=== PATIENT | male | born 1990 | race Asian ===

== ENCOUNTER 2022-10-25 11:54 | Outpatient (CLI) | payer OTHER ==
[2022-10-25 18:12] LABS: BASOPHILS # (AUTO) 0.1 10^3/uL (0.0-0.1); EOSINOPHILS # (AUTO) 0.5 10^3/uL (0.0-0.7); EOSINOPHILS % (AUTO) 4.5 %; HCT - HEMATOCRIT 54.9 % (42.0-52.0); HGB - HEMOGLOBIN 18.1 g/dL (14.0-18.0); LYMPHOCYTES # (AUTO) 3.4 10^3/uL (1.5-3.5); MEAN CORPUSCULAR HEMOGLOBIN 31.2 pg (27.0-31.0); MEAN CORPUSCULAR VOLUME 94.5 fL (80.0-94.0); MEAN PLATELET VOLUME 10.2 fL (7.4-11.4); MONOCYTES # (AUTO) 0.8 10^3/uL (0.0-1.0); MONOCYTES % (AUTO) 7.5 %; NEUTROPHILS # (AUTO) 5.7 10^3/uL (1.5-6.6); NEUTROPHILS % (AUTO) 54.6 %; PLT - PLATELET COUNT 357 10^3/uL (130-450); RED BLOOD COUNT 5.81 10^6/uL (4.70-6.10); RED CELL DISTRIBUTION WIDTH 12.3 % (12.0-15.0); WHITE BLOOD COUNT 10.5 x10^3/uL (4.8-10.8)
[2022-10-25 18:28] LABS: ALBUMIN 4.3 g/dL (3.2-5.5); ALKALINE PHOSPHATASE 53 IU/L (42-121); ALT ALANINE AMINOTRANSFERASE 129 IU/L (10-60); AST ASPARTATE AMINOTRANSFERASE 59 IU/L (10-42); BILIRUBIN,TOTAL 0.8 mg/dL (0.2-1.0); BUN - BLOOD UREA NITROGEN 12 mg/dL (6-20); CALCIUM 9.7 mg/dL (8.5-10.3); CARBON DIOXIDE - CO2 27 mmol/L (21-32); CHLORIDE 103 mmol/L (101-111); CHOL/HDL RATIO 4.7 (<5.0); CHOLESTEROL 253 mg/dL; CREATININE 0.8 mg/dL (0.6-1.2); GFR - MDRD 113 (>89); GLUCOSE 96 mg/dL (70-100); HDL CHOLESTEROL 54 mg/dL; LDL CHOLESTEROL,CALCULATED 168 mg/dL; LDL/HDL RATIO 3.1 (<3.6); POTASSIUM 3.9 mmol/L (3.5-5.0); SODIUM 137 mmol/L (135-145); TOTAL PROTEIN 8.5 g/dL (6.7-8.2); TRIGLYCERIDES 154 mg/dL; URIC ACID 9.2 mg/dL (2.6-7.2); VLDL CHOLESTEROL 31 mg/dL
[2022-10-25 18:33] LABS: THYROID STIMULATING HORMONE 1.51 uIU/mL (0.34-5.60)
== END 2022-10-25 11:55 | disposition home or self-care (01) ==
LOC: LAB.N 11:54
PROVIDERS: ATTEND Physician Assistant
DX: Z13.9 Encounter for screening, unspecified (principal)
CPT/HCPCS: 36415; 80053; 80061; 83721; 84443; 84550; 85025

== ENCOUNTER 2022-11-13 11:44 | Outpatient (CLI) | payer OTHER ==
--- NOTE | 2022-11-13 17:53 | Ultrasound Report ---
PROCEDURE: Abdomen Limited INDICATIONS: ABN LFTS TECHNIQUE: Real-time focused scanning was performed of the abdomen, with image documentation. COMPARISONS: None. FINDINGS: Liver: Liver is normal in size. Diffusely increased liver parenchymal echotexture is seen.. Gallbladder: 5 mm polyp is noted in dependent portion of gallbladder wall. No gallbladder wall thicke marcia or pericholecystic fluid. No sonographic Johnson's sign. Biliary ducts: Intrahepatic bile ducts are non-dilated. Extrahepatic bile duct caliber measures 3.2 mm. Normal is 6-7 mm or less in diameter, or 10 mm or less post-cholecystectomy. Pancreas: Visualized portions of the pancreas are sonographically normal. Right kidney: Normal in size and echotexture. Right kidney measures 10.9 cm long. No hydronephrosis or nephrolithiasis. No solid masses. No complex renal cystic lesions which require follow-up. Aorta: Visualized aorta is normal in caliber at less than 3 cm. IVC: Intrahepatic inferior vena cava is patent. Miscellaneous: No free abdominal fluid. IMPRESSION: 1. Hepatic steatosis, no discrete hepatic lesion. 2. 5 mm polyp in gallbladder. No evidence of cholelithiasis or acute cholecystitis. No biliary ductal dilatation. 3. Rest of the exam is unremarkable. Reviewed by: Ted Crawford MD on 11/13/2022 5:51 PM PDT Approved by: Ted Crawford MD on 11/13/2022 5:51 PM PDT Station ID: [id number]
== END 2022-11-13 11:45 | disposition home or self-care (01) ==
LOC: DI 11:44
PROVIDERS: ATTEND Physician Assistant
DX: K76.0 Fatty (change of) liver, not elsewhere classified (principal); K82.4 Cholesterolosis of gallbladder

== ENCOUNTER 2022-12-18 13:25 | Outpatient (CLI) | payer OTHER ==
--- NOTE | 2022-12-18 14:04 | Sleep Patient Instructions ---
Sleep Center Visit Summary - Patient Visit Information Reason for Visit: Initial consult for evaluation of sleep disordered breathing and other sleep issues. - Patient Instructions Instructions Attached: Sleep Study, Sleep Clinic Visit, Sleep Study Home Monitor Additional Instructions: You will be completing a sleep study, either an in-lab polysomnography (PSG) or home sleep study (HST). You will follow-up in the sleep care office after the sleep study is completed to hear the results and talk about therapy, if needed. You will be called by our office staff to schedule this appointment, but you may contact us with any questions. - Clinic Information Contact: [facility] [address] [place] [address] [email or web address] T: [phone]
--- NOTE | 2022-12-18 14:10 | SLEEP CARE CONSULTATION ---
Information from patient questionnaire entered by Sary Riley. I have reviewed and concur with the information entered by Sary Riley. This document represents the service I personally performed and the decisions made by me, Alyson Wu ARNP. History of Present Illness Service Date and Time: 12/18/2022 1325 Reason for Visit: New patient Chief Complaint: reports: Snoring, Observed pauses in breathing Date of Onset: YRS Usual bedtime: 11PM Time it takes to fall asleep: 15-20MIN Snores at night: Yes Observed to quit breathing while asleep: Yes Sleeps alone due to snoring: No Number of times waking at night: 1-2 Reasons for waking at night: reports: Bathroom. denies: Choking, Snoring, Gasping for air Toss, Turn, or Twitch while sleeping: Yes Recalls having dreams: No (not normally) Usually gets out of bed at: 630AM Feels refreshed in the morning: Yes Morning headache: No Sleepy or fatigued during the day: Yes Ever fallen asleep while driving: No Takes day naps: Yes (usually only 1-2 hours on days off) Dreams during day naps: No Prior sleep studies: No Additional HPI information: I had the pleasure of seeing NINA QIU today regarding the possibility of him having a sleep disorder. His current complaints are snoring and observed pauses in breathing. He states he knows that he snores. His mother and brother have told him that he stops breathing when sleeping. He denies ever waking up from snoring, gasping for air or feeling like he is choking. He states more recently he has been getting tired during his work day and sometimes almost falling asleep when he is standing up. He is concerned about his health and why he could be so tired during the day. He has had times that he wakes up sitting up without any recollection of why he is sitting up. He thinks he fell asleep laying down but then wakes up already sitting up. He states he normally wakes up feeling refreshed. He denies morning headaches. He states his father had sleep apnea. 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 Patient is Single and lives in . Have you smoked in the past 12 months: No Alcohol use: Yes Alcohol amount and frequency: LESS THAN ONE SOCIALLY Caffeine use: Yes Caffeine amount and frequency: 1-2 DAILY Family History Family history of sleep disordered breathing: Yes Family Hx Sleep Apnea: Mother: Snoring, Father: Snoring, Sleep apnea - Treated, Sibling: Snoring Allergies and Home Medications Known drug allergies: No Drug allergies reviewed: Yes Home medication list reviewed: Yes (Ibuprofen, as needed) Review of Systems Weight gain over past 5 years: 10- Cardiovascular: denies: high blood pressure Respiratory: denies: shortness of breath Gastrointestinal: denies: heartburn Neurological: denies: headaches, head trauma Psychiatric: denies: anxiety, depression Ear/Nose/Throat: denies: injury to nose, tonsillectomy Endocrine: denies: thyroid disease Immunologic: reports: allergies to food or environment (may have some environmental allergies, not sure) Physical Exam Vital signs obtained and entered by: SARY Steele MA Blood Pressure: 134/86 (LEFT ARM) Cuff size: regular Heart Rate: 125 O2 Saturation: 95 Height: 5 ft 5 in Weight: 279 lb 9.6 oz Body Mass Index: 46.5 BMI Classification: Morbidly Obese Neck circumference: 21 Mouth and throat: narrow oropharynx Soft palate: long Hard palate: normal Uvula: normal Uvula visualization: 25% Mallampati Class III Tongue: enlarged in size with teeth wilson on lateral edges Tonsils: 2+ Neck: normal w/o lymphadenopathy or thyromegaly Heart: regular rate and rhythm Lungs: clear bilaterally Impression and Plan 1. Suspected Obstructive Sleep Apnea-Hypopnea Syndrome, as suggested by a history of loud and irregular snoring, observed cessation of breath while asleep, and excessive daytime sleepiness. Narrow oropharynx and obesity are common predisposing factors for obstructive sleep apnea-hypopnea syndrome. I recommend proceeding to polysomnography to confirm the diagnosis and to assess severity. If the patient has significant sleep disordered breathing, a manual CPAP titration study will also be performed to find the optimal treatment pressure. I informed the patient of what the sleep studies involve and after some discussion, obtained agreement to proceed. The pathophysiology of obstructive sleep apnea-hypopnea syndrome was discussed with the patient and health risks of cardiovascular and cerebrovascular disease if not treated. 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 Patient agreed to plan. * Schedule polysomnography. * Avoid long distance driving or driving when feeling sleepy. * Avoid alcohol, sedative and muscle relaxant around bedtime. * Attempt to lose weight. * Review instructions provided by trained office staff on how to prepare for the sleep study. * Return for follow-up after sleep study completed. Counseling Topics: Weight loss health impact Visit Type: In Office Provider Statement: I spent 100% of the Face to Face Visit with the patient with greater than 50% spent counseling the patient and coordination of care.
[2022-12-18 14:17] VITALS: BP 134/86; O2SAT 95
== END 2022-12-18 13:26 | disposition home or self-care (01) ==
LOC: SC 13:25
PROVIDERS: ATTEND Nurse Practitioner Family
DX: G47.10 Hypersomnia, unspecified (principal); R53.83 Other fatigue; R06.83 Snoring; R06.81 Apnea, not elsewhere classified; E66.01 Morbid (severe) obesity due to excess calories; Z68.42 Body mass index [BMI] 45.0-49.9, adult
CPT/HCPCS: 99203; 99212

== ENCOUNTER 2023-01-22 12:35 | Outpatient (CLI) | payer OTHER ==
[2023-01-22 18:30] LABS: ALBUMIN 4.5 g/dL (3.2-5.5); ALBUMIN/GLOBULIN RATIO 1.3 (1.0-2.2); ALKALINE PHOSPHATASE 52 IU/L (42-121); ALT ALANINE AMINOTRANSFERASE 86 IU/L (10-60); AST ASPARTATE AMINOTRANSFERASE 42 IU/L (10-42); BILIRUBIN,TOTAL 0.8 mg/dL (0.2-1.0); BUN - BLOOD UREA NITROGEN 10 mg/dL (6-20); CARBON DIOXIDE - CO2 28 mmol/L (21-32); CHLORIDE 103 mmol/L (101-111); CHOL/HDL RATIO 4.2 (<5.0); CHOLESTEROL 212 mg/dL; CREATININE 0.7 mg/dL (0.6-1.3); GFR - MDRD 131 (>89); GLUCOSE 106 mg/dL (74-104); HDL CHOLESTEROL 51 mg/dL; LDL CHOLESTEROL,CALCULATED 133 mg/dL; LDL/HDL RATIO 2.6 (<3.6); POTASSIUM 4.1 mmol/L (3.5-4.5); SODIUM 139 mmol/L (135-145); TOTAL PROTEIN 7.9 g/dL (6.4-8.9); TRIGLYCERIDES 142 mg/dL (48-352); VLDL CHOLESTEROL 28 mg/dL
== END 2023-01-22 12:36 | disposition home or self-care (01) ==
LOC: LAB.N 12:35
PROVIDERS: ATTEND Physician Assistant
DX: E78.5 Hyperlipidemia, unspecified (principal); R94.5 Abnormal results of liver function studies
CPT/HCPCS: 36415; 80053; 80061; 83721

== ENCOUNTER 2023-02-05 20:21 | Outpatient (CLI) | payer OTHER | END 2023-02-05 20:22 | disposition home or self-care (01) | LOC: SC 20:21 | PROVIDERS: ATTEND Nurse Practitioner Family | DX: G47.33 Obstructive sleep apnea (adult) (pediatric) (principal); R09.02 Hypoxemia; I49.9 Cardiac arrhythmia, unspecified; E66.01 Morbid (severe) obesity due to excess calories; Z68.42 Body mass index [BMI] 45.0-49.9, adult | CPT/HCPCS: 95810 ==

== ENCOUNTER 2023-04-18 10:29 | Outpatient (CLI) | payer OTHER ==
--- NOTE | 2023-04-18 11:00 | Sleep Patient Instructions ---
Sleep Center Visit Summary - Patient Visit Information Reason for Visit: First Compliance - Patient Instructions Additional Instructions: You were here for follow up of CPAP therapy. You will be continued on CPAP therapy with pressure at 12-16 cmH2O. Please let us know if the pressure change is uncomfortable and we can make further adjustments of the pressure. You should follow up with sleep care in 1-2 months. You may contact us sooner for any questions or concerns. - Clinic Information Contact: [facility] [address] [place] [id number] [email or web address] T: [phone]
--- NOTE | 2023-04-18 11:03 | SLEEP CARE CONSULTATION ---
Information from patient questionnaire entered by Sary Riley. I have reviewed and concur with the information entered by Sary Riley. This document represents the service I personally performed and the decisions made by , Alyson Wu ARNP. History of Present Illness Service Date and Time: 04/18/2023 1029 Previous diagnosis: Extremely Severe, Obstructive Sleep Apnea-Hypopnea Syndrome AHI: 101.9 (02/2023) Reason for follow up: first compliance Equipment type: CPAP (RESMED Airsense 11, s/u ) Equipment obtained from: Other ([facility]; getting supplies) Mask style: Nasal (Eson 2) Backup mask available: No (will keep old mask when replaced) Prior sleep studies: No Type of Sleep Study: Polysomnography (COMPLETED 02/05/23) HPI additional information: NINA QIU was diagnosed to have extremely severe, AHI 101.9, obstructive s leep apnea-hypopnea syndrome and returned today for CPAP therapy first compliance follow-up. Sleep Study - Results Type of Sleep Study: Polysomnography (COMPLETED 02/05/23) Prior sleep studies: No CPAP Compliance Data - Data Reviewed with Patient Average duration of nightly device use: 4 hours 11 minutes Compliance rate %: 43 (20/30 days used) Current pressure setting (cmH2O): 5-20 (median 11.6, avg 14.1, max 15.4) Average residual AHI: 4.1 Central apnea: 0.2 Obstructive apnea: 1.6 Hypopnea: 1 Average large leak: 11.2 L/min Subjective Missed days of use due to: reports: other (not sleeping, mind racing, short night sleep) Patient concerns: denies: aerophagia, mask discomfort, air blowing in eyes, mask leak noise, condensation in mask/hose, nasal congestion, dry mouth, nose, throat, epistaxis On therapy, patient: reports: sleeping better, awakening more refreshed, being more awake and alert during the day, more rested overall. denies: drowsiness while driving Initial [place] Sleepiness Scale score: 12 (12/18/22) Current [place] Sleepiness Scale score: 9 (04/18/23) Allergies and Home Medications Known drug allergies: No Drug allergies reviewed: Yes Home medication list reviewed: Yes (no changes) Allergy and home medication list: Allergies No Known Drug Allergies Allergy (Verified 04/17/23 08:52) Review of Systems Review of systems same as previous: Yes (NO CHANGE) Physical Exam Vital signs obtained and entered by: SARY Steele MA Blood Pressure: 150/94 (LEFT ARM) Cuff size: long Heart Rate: 105 O2 Saturation: 97 Height: 5 ft 5 in Weight: 278 lb 9.6 oz Body Mass Index: 46.3 BMI Classification: Morbidly Obese Impression and Plan 1. Obstructive Sleep Apnea-Hypopnea Syndrome, extremely severe, with fair treatment compliance and good apnea control. On CPAP therapy, the patient has better sleep quality and is more rested overall. He states he is trying to put it on but is does not always put it on before he falls asleep. He also has difficulty falling asleep and so he has had shorter nights because he also woke up early and could not go back to sleep. I encouraged him to continue to put the mask on prior to falling asleep to increase his compliance and he voiced understanding. The patients pressure will be changed to autoCPAP 12-16 cmH20 to reflect pressure being used. Patient advised to contact me if pressure change is uncomfortable so that it can be adjusted. Goals for apnea control discussed. Patient's apnea severity and rationale for treatment to reduce apnea, improve sleep quality and reduce cardiovascular and cerebrovascular events was reviewed. I also reviewed the benefit of consistent device use of CPAP for asthma. 2. Obesity, unspecified. Currently patients BMI is 46.3. Obesity increases the risk of apnea, CPAP pressure requirements and overall health risks especially cardiovascular and diabetes. Thus patient is advised to lose weight. * Change auto CPAP pressure to 12-16 cmH2O * Notify me if snoring with mask or feeling that the pressure is too much or too little * Attempt to lose weight * Call this office if any problems using CPAP * Return for follow up in 1-2 months, or sooner if concerns arise Counseling Topics: Spare mask, Weight loss health impact Follow up with Sleep Care in: 1-2 months Visit Type: In Office Time Spent with Patient (minutes): 20 Provider Statement: I spent 100% of the Face to Face Visit with the patient with greater than 50% spent counseling the patient and coordination of care.
[2023-04-18 11:12] VITALS: BP 150/94; O2SAT 97
== END 2023-04-18 10:30 | disposition home or self-care (01) ==
LOC: SC 10:29
PROVIDERS: ATTEND Nurse Practitioner Family
DX: G47.33 Obstructive sleep apnea (adult) (pediatric) (principal); E66.01 Morbid (severe) obesity due to excess calories; Z68.42 Body mass index [BMI] 45.0-49.9, adult
CPT/HCPCS: 99212; 99213

== ENCOUNTER 2023-05-21 09:35 | Outpatient (CLI) | payer OTHER ==
--- NOTE | 2023-05-21 09:52 | Sleep Patient Instructions ---
Sleep Center Visit Summary - Patient Visit Information Reason for Visit: 1 month followup - Patient Instructions Additional Instructions: You were here for follow up of CPAP therapy. You will be continued on CPAP therapy with pressure at 12-16 cmH2O. You should follow up with sleep care in 1-2 months. You may contact us sooner for any questions or concerns. - Clinic Information Contact: [facility] [address] [place] [address] [email or web address] T: [phone]
--- NOTE | 2023-05-21 09:56 | SLEEP CARE CONSULTATION ---
Information from patient questionnaire entered by Caroline Riley. I have reviewed and concur with the information entered by Caroline Riley. This document represents the service I personally performed and the decisions made by me, Alyson Wu ARNP. History of Present Illness Service Date and Time: 05/21/2023 0935 Previous diagnosis: Extremely Severe, Obstructive Sleep Apnea-Hypopnea Syndrome AHI: 101.9 (02/2023) Reason for follow up: one month (F/U) Equipment type: CPAP (RESMED Airsense 11, s/u ) Equipment obtained from: Other ([facility]; getting supplies) Mask style: Nasal (Eson 2) Mask brand: [employer] Backup mask available: No (will keep old mask when replaced) Last cushion change: 2-3 months Prior sleep studies: No Type of Sleep Study: Polysomnography (COMPLETED 02/05/23) HPI additional information: NINA QIU was diagnosed to have extremely severe, AHI 101.9, obstructive sleep apnea-hypopnea syndrome and returned today for CPAP therapy one month follow-up. Sleep Study - Results Type of Sleep Study: Polysomnography (COMPLETED 02/05/23) Prior sleep studies: No CPAP Compliance Data - Data Reviewed with Patient Average duration of nightly device use: 3 HRS 47 MIN Compliance rate %: 27 ( days used) Current pressure setting (cmH2O): 12-16 Average residual AHI: 2.0 Central apnea: 0.4 Obstructive apnea: 0.4 Average large leak: 11.6 L/min Subjective Missed days of use due to: reports: other (falling asleep before putting on) Patient concerns: denies: aerophagia, mask discomfort, air blowing in eyes, mask leak noise, condensation in mask/hose, nasal congestion, dry mouth, nose, thro at, epistaxis Observed to snore while using device: No Current pressure setting perceived as: comfortable On therapy, patient: reports: sleeping better, awakening more refreshed, being more awake and alert during the day, more rested overall. denies: drowsiness while driving Initial [place] Sleepiness Scale score: 12 (12/18/22) Current [place] Sleepiness Scale score: 8 Allergies and Home Medications Known drug allergies: No Drug allergies reviewed: Yes Home medication list reviewed: Yes (no changes) Allergy and home medication list: Allergies No Known Drug Allergies Allergy (Verified 05/17/23 09:52) Review of Systems Review of systems same as previous: Yes (no changes) Physical Exam Vital signs obtained and entered by: YUDY DURBIN Blood Pressure: 137/96 Cuff size: regular (right arm) Heart Rate: 101 O2 Saturation: 96 Height: 5 ft 5 in Weight: 278 lb Body Mass Index: 46.2 BMI Classification: Morbidly Obese Impression and Plan 1. Obstructive Sleep Apnea-Hypopnea Syndrome, extremely severe, with poor treatment compliance and good apnea control. On CPAP therapy, the patient has better sleep quality and is more rested overall. His compliance has been affected by his falling asleep before getting the mask on. I encouraged him to put the mask on before laying down and getting comfortable as this seems to be when he falls asleep without it. Compliance guidelines reviewed for insurance coverage. Patient was counseled on the difference between meeting compliance and optimal use of CPAP. Optimal use of CPAP is use of CPAP with all sleep to obtain maximum benefit of treatment. Patient is encouraged to use CPAP with all sleep. He voiced understanding. Patient's apnea severity and rationale for treatment to reduce apnea, improve sleep quality and reduce cardiovascular and cerebrovascular events was reviewed. I also reviewed the benefit of consistent device use of CPAP for asthma. 2. Obesity, unspecified. Currently patients BMI is 46.2. Obesity increases the risk of apnea, CPAP pressure requirements and overall health risks especially cardiovascular and diabetes. Thus patient is advised to lose weight. * Continue auto CPAP pressure at 12-16 cmH2O * Notify me if snoring with mask or feeling that the pressure is too much or too little * Attempt to lose weight * Call this office if any problems using CPAP * Return for follow up in 1-2 months, or sooner if concerns arise Counseling Topics: Spare mask, Weight loss health impact Follow up with Sleep Care in: 1-2 months Visit Type: In Office Time Spent with Patient (minutes): 15 Provider Statement: I spent 100% of the Face to Face Visit with the patient with greater than 50% spent counseling the patient and coordination of care.
[2023-05-21 09:57] VITALS: BP 137/96; O2SAT 96
== END 2023-05-21 09:36 | disposition home or self-care (01) ==
LOC: SC 09:35
PROVIDERS: ATTEND Nurse Practitioner Family
DX: G47.33 Obstructive sleep apnea (adult) (pediatric) (principal); E66.01 Morbid (severe) obesity due to excess calories; Z68.42 Body mass index [BMI] 45.0-49.9, adult
CPT/HCPCS: 99212

== ENCOUNTER 2023-08-14 10:27 | Outpatient (CLI) | payer OTHER ==
--- NOTE | 2023-08-14 11:00 | Sleep Patient Instructions ---
Sleep Center Visit Summary - Patient Visit Information Reason for Visit: 2-month follow-up - Patient Instructions Additional Instructions: You were here for follow up of CPAP therapy. You will be continued on CPAP therapy with pressure at 12-16 cmH2O. You should follow up with sleep care in 3 months. You may contact us sooner for any questions or concerns. - Clinic Information Contact: [facility] [address] [place] [address] [email or web address] T: [phone]
--- NOTE | 2023-08-14 11:02 | SLEEP CARE CONSULTATION ---
Information from patient questionnaire entered by Caroline Riley. I have reviewed and concur with the information entered by Caroline Riley. This document represents the service I personally performed and the decisions made by , Alyson Wu ARNP. History of Present Illness Service Date and Time: 08/14/2023 1027 Previous diagnosis: Extremely Severe, Obstructive Sleep Apnea-Hypopnea Syndrome AHI: 101.9 (02/2023) Reason for follow up: other (2 MONTH F/U) Equipment type: CPAP (RESMED Airsense 11, s/u ) Equipment obtained from: Other ([email or web address]; getting supplies) Mask style: Nasal (Eson 2, medium cushion) Backup mask available: No Last cushion change: couple months Prior sleep studies: No Type of Sleep Study: Polysomnography (COMPLETED 02/05/23) HPI additional information: NINA QIU was diagnosed to have extremely severe, AHI 101.9, obstructive sleep apnea-hypopnea syndrome and returned today for CPAP therapy two month follow-up. Sleep Study - Results Type of Sleep Study: Polysomnography (COMPLETED 02/05/23) Prior sleep studies: No CPAP Compliance Data - Data Reviewed with Patient Average duration of nightly device use: 4 HRS Compliance rate %: 23 (-08/10/23; days used) Current pressure setting (cmH2O): 12-16 Average residual AHI: 1.5 Central apnea: 0.4 Obstructive apnea: 0.6 Average large leak: 18.9 L/min Subjective Missed days of use due to: reports: travel, other (falling asleep before masking) Patient concerns: denies: aerophagia, mask discomfort, air blowing in eyes, mask leak noise, condensation in mask/hose, nasal congestion, dry mouth, nose, throat, epistaxis Observed to snore while using device: Yes Current pressure setting perceived as: comfortable On therapy, patient: reports: sleeping better, awakening more refreshed, being more awake and alert during the day, more rested overall. denies: drowsiness while driving Initial [place] Sleepiness Scale score: 12 (12/18/22) Current [place] Sleepiness Scale score: 9 Allergies and Home Medications Known drug allergies: No Drug allergies reviewed: Yes Home medication list reviewed: Yes (no changes) Allergy and home medication list: Allergies No Known Drug Allergies Allergy (Verified 08/12/23 09:59) Review of Systems Review of systems same as previous: Yes (no changes) Physical Exam Vital signs obtained and entered by: ALYSON JIMENES Blood Pressure: 147/95 Cuff size: long (left arm) Heart Rate: 97 O2 Saturation: 98 Height: 5 ft 5 in Weight: 280 lb Body Mass Index: 46.5 BMI Classification: Morbidly Obese Impression and Plan 1. Obstructive Sleep Apnea-Hypopnea Syndrome, extremely severe, with poor treatment compliance and good apnea control. On CPAP therapy, the patient has better sleep quality and is more rested overall. He states he is comfortable with using his machine but does not put it on as he is laying down in bed and will fall asleep without it. I encouraged him to put the mask on when he lays down so that he does not fall asleep without it. He voiced understanding. He does have significant improvement of his sleep apnea when he uses his CPAP and I reviewed this data with him. He voiced understanding and agrees to try to use his CPAP more. Patient's apnea severity and rationale for treatment to reduce apnea, improve sleep quality and reduce cardiovascular and cerebrovascular events was reviewed. I also reviewed the benefit of consistent device use of CPAP for asthma. 2. Obesity, unspecified. Currently patients BMI is 46.5. Obesity increases the risk of apnea, CPAP pressure requirements and overall health risks especially cardiovascular and diabetes. Thus patient is advised to lose weight. * Continue auto CPAP pressure at 12-16 cmH2O * Notify me if snoring with mask or feeling that the pressure is too much or too little * Attempt to lose weight * Call this office if any problems using CPAP * Return for follow up in 3 months, or sooner if concerns arise Counseling Topics: Spare mask, Weight loss health impact Follow up with Sleep Care in: 3 months Visit Type: In Office Time Spent with Patient (minutes): 17 Provider Statement: I spent 100% of the Face to Face Visit with the patient with greater than 50% spent counseling the patient and coordination of care.
[2023-08-14 11:06] VITALS: BP 147/95; O2SAT 98
== END 2023-08-14 10:28 | disposition home or self-care (01) ==
LOC: SC 10:27
PROVIDERS: ATTEND Nurse Practitioner Family
DX: G47.33 Obstructive sleep apnea (adult) (pediatric) (principal); E66.01 Morbid (severe) obesity due to excess calories; Z68.42 Body mass index [BMI] 45.0-49.9, adult
CPT/HCPCS: 99212

== ENCOUNTER 2023-11-14 10:30 | Outpatient (CLI) | payer OTHER ==
--- NOTE | 2023-11-14 10:48 | Sleep Patient Instructions ---
Sleep Center Visit Summary - Patient Visit Information Reason for Visit: 3-month follow-up - Patient Instructions Additional Instructions: You were here for follow up of CPAP therapy. You will be continued on CPAP therapy with pressure at 12-16 cmH2O. You should follow up with sleep care in 3 months. You may contact us sooner for any questions or concerns. - Clinic Information Contact: [facility] [address] [place] [address] [email or web address] T: [phone]
--- NOTE | 2023-11-14 10:51 | SLEEP CARE CONSULTATION ---
Information from patient questionnaire entered by Sary Riley. I have reviewed and concur with the information entered by Sary Riley. This document represents the service I personally performed and the decisions made by , Alyson Wu ARNP. History of Present Illness Service Date and Time: 11/14/2023 1030 Previous diagnosis: Extremely Severe, Obstructive Sleep Apnea-Hypopnea Syndrome AHI: 101.9 (02/2023) Reason for follow up: three month Equipment type: CPAP (RESMED Airsense 11, s/u ) Equipment obtained from: Other ([facility]; getting supplies) Mask style: Nasal (Eson 2) Backup mask available: Yes Last cushion change: 1 month or so Prior sleep studies: No Type of Sleep Study: Polysomnography (COMPLETED 02/05/23) HPI additional information: NINA QIU was diagnosed to have extremely severe, AHI 101.9, obstructive sleep apnea-hypopnea syndrome and returned today for CPAP therapy three month follow-up. Sleep Study - Results Type of Sleep Study: Polysomnography (COMPLETED 02/05/23) Prior sleep studies: No CPAP Compliance Data - Data Reviewed with Patient Average duration of nightly device use: 3 HRS 56 MINS Compliance rate %: 24 (08/13/23--11/10/23; 45/90 days used) Current pressure setting (cmH2O): 12-16 Average residual AHI: 2.6 Central apnea: 1.8 Obstructive apnea: 0.3 Hypopnea: 0.4 Average large leak: 10.9 L/min Subjective Missed days of use due to: reports: other (falls asleep without mask on; staying away from home few days a week, not taking CPAP with him) Patient concerns: denies: aerophagia, mask discomfort, air blowing in eyes, mask leak noise, condensation in mask/hose, nasal congestion, dry mouth, nose, throat, epistaxis Observed to snore while using device: No Current pressure setting perceived as: comfortable On therapy, patient: reports: sleeping better, awakening more refreshed, being more awake and alert during the day, more rested overall. denies: drowsiness while driving Initial Orwell Sleepiness Scale score: 12 (12/18/22) Current Orwell Sleepiness Scale score: 9 (11/14/23) Allergies and Home Medications Known drug allergies: No Drug allergies reviewed: Yes Home medication list reviewed: Yes (no changes) Allergy and home medication list: Allergies No Known Drug Allergies Allergy (Verified 11/11/23 12:39) Review of Systems Review of systems same as previous: Yes (no change) Physical Exam Vital signs obtained and entered by: SARY Steele MA Blood Pressure: 151/98 (RIGHT ARM) Cuff size: long Heart Rate: 96 O2 Saturation: 97 Height: 5 ft 5 in Weight: 277 lb 9.6 oz Weight change since last visit: 3 lb loss Body Mass Index: 46.2 BMI Classification: Morbidly Obese Impression and Plan 1. Obstructive Sleep Apnea-Hypopnea Syndrome, extremely severe, with poor treatment compliance and good apnea control. On CPAP therapy, the patient has better sleep quality and is more rested overall. He says he stays away from home a couple of nights a week and does not take his CPAP with him. I encouraged him to do that to help bring up his compliance numbers. He is comfortable with using the CPAP and is having significant improvement of sleep apnea when he uses his CPAP. We reviewed his data so that he understands this and he voiced understanding. He will make an effort to take the machine with him so that he can increase his compliance with using his CPAP. Patient's apnea severity and rationale for treatment to reduce apnea, improve sleep quality and reduce cardiovascular and cerebrovascular events was reviewed. I also reviewed the benefit of consistent device use of CPAP for asthma. 2. Obesity, unspecified. Currently patients BMI is 46.2. He has lost weight. Obesity increases the risk of apnea, CPAP pressure requirements and overall health risks especially cardiovascular and diabetes. Thus patient is advised to continue to try to lose weight. * Continue auto CPAP pressure at 12-16 cmH2O * Notify me if snoring with mask or feeling that the pressure is too much or too little * Continue to try to lose weight * Call this office if any problems using CPAP * Return for follow up in 3 months, or sooner if concerns arise Counseling Topics: Spare mask, Weight loss health impact Follow up with Sleep Care in: 3 months Visit Type: In Office Time Spent with Patient (minutes): 12 Provider Statement: I spent 100% of the Face to Face Visit with the patient with greater than 50% spent counseling the patient and coordination of care.
[2023-11-14 10:56] VITALS: BP 151/98; O2SAT 97
== END 2023-11-14 10:31 | disposition home or self-care (01) ==
LOC: SC 10:30
PROVIDERS: ATTEND Nurse Practitioner Family
DX: G47.33 Obstructive sleep apnea (adult) (pediatric) (principal); E66.01 Morbid (severe) obesity due to excess calories; Z68.42 Body mass index [BMI] 45.0-49.9, adult
CPT/HCPCS: 99212